=== PATIENT | male | born 1955 | race Caucasian/White ===

== ENCOUNTER 2020-05-30 05:58 | Day surgery (SDC) | payer BC ==
--- NOTE | 2020-05-26 09:15 | RAD REPORT ---
EXAM DESCRIPTION: RAD - Chest Pa And Lat (2 Views) - 05/26/2020 9:10 am CLINICAL HISTORY: pre op Chest pain. COMPARISON: Abdomen Acute Series dated 04/01/2017; Abdomen 1 View (KUB) dated 03/30/2017; CHEST PA AND LAT 2 VIEW dated 12/15/2009 FINDINGS: The lungs are clear. Chronic elevation left hemidiaphragm, unchanged. The heart is normal in size. No displaced fractures. IMPRESSION: No acute or concerning finding suspected.
[2020-05-26 09:34] LABS: Basophils % 0.7 % (0-1.3); Hematocrit 41.8 % (39.6-49.0); Lymphocytes % 32.3 % (15.3-44.8); MPV 7.1 fL (7.6-11.3); RBC Red Blood Cell Count 4.58 M/uL (4.33-5.43)
[2020-05-26 09:41] LABS: Protime INR 1.05
[2020-05-26 09:51] LABS: Potassium 4.3 mmol/L (3.5-5.1)
[2020-05-26 10:14] LABS: Urine Appearance CLEAR; Urine Bilirubin NEGATIVE (NEG); Urine Blood NEGATIVE (NEG); Urine Color YELLOW; Urine Glucose NEGATIVE (NEG); Urine Protein NEGATIVE (NEG); Urine Specific Gravity >=1.030 (1.005-1.030); Urine Urobilinogen 0.2 mg/dL (0.2-1.0)
[2020-05-26 11:41] LABS: Urine Microscopic Reflex NO UMIC
--- OUTSIDE RECORDS SUMMARY | 2020-05-30 06:00 | XMS REPORT | Summary of Care ---
:1955 Author Organization [facility] Address [address] [place] [address]- phone Encounter HQ Encntr_alivimal(FIN) [id number] Date(s): 04/30/20 - 04/30/20 [facility] [address], [place] [address]- [phone] Discharge Disposition: Home or Self Care Attending Physician: Tru Collins MD Referring Physician: Jonathan Alonzo MD Vital Signs No data available for this section Problem List Condition Effective Dates Status Health Status Informant CTS (carpal tunnel Active syndrome)(Confirmed) Allergies, Adverse Reactions, Alerts No data available for this section Medications No data available for this section Results No data available for this section Immunizations No data available for this section Procedures No data available for this section Social History No data available for this section Assessment and Plan No data available for this section
--- OUTSIDE RECORDS SUMMARY | 2020-05-30 06:00 | XMS REPORT | Continuity of Care Document ---
:1955 Author Organization [facility] Care Team Providers Name Role Phone [facility] Unavailable Un available Problems Problem Status Onset Classification Date Comments Sourc e Date Reported Carpal tunnel Active Problem 05/03/2020 Misch er syndrome Neuro (disorder) Medications No Data Provided for This Section Allergies, Adverse Reactions, Alerts No Known Medication Allergies Immunizations No Data Provided for This Section Results No Data Provided for This Section Pathology Reports No Data Provided for This Section Diagnostic Reports No Data Provided for This Section Consultation Notes No Data Provided for This Section Discharge Summaries No Data Provided for This Section History and Physicals No Data Provided for This Section Vital Signs No Data Provided for This Section Encounters Location Location Encounter Encounter Reason Attending ADM CA Stat Source Details Type Number For Provider Date Date Visit Outpatient [id number] Tru 04/30 Active [facility] [place] [facility] Out[facility] [id number] Jonathan 04/30 05/01 [facility] /2019 [facility] [place] Procedures No Data Provided for This Section Assessment and Plan No Data Provided for This Section Plan of Care No Data Provided for This Section Social History Social History Date Source No data available for this 05/01/2020 [facility] section Family History No Data Provided for This Section Advance Directives No Data Provided for This Section Functional Status No Data Provided for This Section
[2020-05-30] MEDS ORDERED: Ringers Lactate 1,000 ML IV ONE (06:17)
[2020-05-30] MEDS ORDERED: CEFAZOLIN/SWI 1gm 1 GM/10 ML SYR ONE (06:17)
[2020-05-30] MEDS ORDERED: BUPIVACAINE 0.25% PF 30 ML VIAL ONE (07:22)
[2020-05-30] MEDS ORDERED: MIDAZOLAM HCL 2 MG/2 ML INJ ONE (07:30)
[2020-05-30] MEDS ORDERED: propofoL 200 MG/20 ML VIAL IV ONE ×2 (07:31→07:37)
[2020-05-30] MEDS ORDERED: ONDANSETRON 4 MG/2 ML VIAL ONE (07:31)
[2020-05-30] MEDS ORDERED: LIDOCAINE 2% MPF 5 ML VIAL ONE (07:31)
[2020-05-30] MEDS ORDERED: NS 0.9% VIAL 30 ML ONE ×2 (07:31→07:32)
[2020-05-30] MEDS ORDERED: FENTANYL CITR 100 MCG/2 ML ONE (07:32)
[2020-05-30] MEDS ORDERED: KETOROLAC 30 MG/ML INJ ONE (08:32)
--- NOTE | 2020-05-30 08:55 | P.BOP ---
Preoperative diagnosis: right carpal tunnel syndrome Postoperative diagnosis: same Primary procedure: right open carpal tunnel release Sr. Director Product Management: NONE,NONE Estimated blood loss: 3 cc Specimen: none Findings: see dictation Anesthesia: General Complications: None Implants: none Fluids & blood products: per anesthesia record; TT: 33 mins @ 300 mmHg Transferred to: Recovery Room Condition: Good
[2020-05-30] MEDS ORDERED: CODEINE 30MG/APAP 300MG TAB ONE (09:36)
[2020-05-30 13:26] VITALS: BP 137/81; TEMP 97.4; O2SAT 96
--- NOTE | 2020-06-04 11:30 | OP ---
Date of Procedure: 05/30/2020 Surgeon: Jonathan Alonzo MD Preoperative Diagnosis: Right carpal tunnel syndrome. Postoperative Diagnosis: Right carpal tunnel syndrome. Procedure Performed: Right open carpal tunnel release. Anesthesia: Valentine block. Fluids: Per Anesthesia record. Estimated Blood Loss: 50 cc. Tourniquet Time: 33 minutes at 300 mmHg. Indication For Procedure: Dirk is a 65-year-old male, who presented to my clinic with signs, sympt oms, and EMG findings consistent with carpal tunnel syndrome. The patient failed conservative measur es and continued difficulties with activities of daily living. Discussed with the patient at length risks and benefits associated with operative and nonoperative treatment. He expressed understanding and elected to proceed with operative treatment. Description Of Procedure: After informed consent was obtained, the patient was identified in the pre operative holding area. The right upper extremity was marked. The patient was then brought back to the operating room, transferred to the operating table in supine fashion. Placement of the above ane sthesia performed by the anesthesia team. The right upper extremity was then prepped and draped in u sual sterile fashion. A time-out was initiated. Correct patient and procedure were confirmed and id entified. The patient did receive his preoperative prophylactic antibiotics. Approximately, a 2 cm incision was made just ulnar to the thenar crease in line with the radial aspect of the fourth digit with a flexed hand. Dissection was then taken down to the palmar fascia, which was identified. A Fr eer elevator was placed just deep to the palmar fascia and transverse carpal ligament to protect the median nerve at all times. A 15-blade was then used to release the transverse carpal ligament and th e palmar fascia with a [place] elevator between the fascia and the median nerve to protect it at all ti mes. After full release of the transverse carpal ligament was performed, a smooth tip Metzenbaum sci ssors was then used to release any remaining fascial bands with Metzenbaum tips were ran superficiall y at all times again to avoid any contact with median nerves after complete release of the transverse carpal ligament and any remaining fascial bands was performed. The wound was then irrigated thoroug hly with normal saline. Skin was approximated using a 5-0 Prolene. Sterile dressings were applied. Tourniquet was let down. The patient was sent to the PACU in stable condition. Postoperative Plan: Mr. Morris will follow up my clinic in 1 week for suture removal. He will be no nweightbearing on his right upper extremity. CV/MODL Voice ID: [id number] Report ID: [id number]
== END 2020-05-30 10:10 | disposition home or self-care (01) ==
LOC: OR 05:58
PROVIDERS: ATTEND Orthopaedic Surgery Sports Medicine
PROC: 01N50ZZ Release Median Nerve, Open Approach (ICD-10-PCS; principal; 2020-05-30 07:30)
DX: G56.01 Carpal tunnel syndrome, right upper limb (principal); M10.9 Gout, unspecified; G47.33 Obstructive sleep apnea (adult) (pediatric); Z11.59 Encounter for screening for other viral diseases; Z83.3 Family history of diabetes mellitus
CPT/HCPCS: 93005; 85025; 80048; 36415; 85610; 85730; 81003; 71046; 64721; U0002; J2704 ×2; J2250; J3010; J0690; J7120; J2405

== ENCOUNTER 2020-07-30 06:23 | Day surgery (SDC) | payer BC ==
[2020-07-24 10:27] LABS: Urine Appearance CLEAR; Urine Bilirubin NEGATIVE (NEG); Urine Blood NEGATIVE (NEG); Urine Color YELLOW; Urine Glucose NEGATIVE (NEG); Urine Protein TRACE (NEG); Urine Specific Gravity 1.025 (1.005-1.030); Urine Urobilinogen 0.2 mg/dL (0.2-1.0)
[2020-07-24 10:29] LABS: Basophils % 0.8 % (0-1.3); Hematocrit 42.8 % (39.6-49.0); Lymphocytes % 32.2 % (15.3-44.8); MPV 7.5 fL (7.6-11.3); RBC Red Blood Cell Count 4.72 M/uL (4.33-5.43)
[2020-07-24 10:40] LABS: Protime INR 1.02
[2020-07-24 10:50] LABS: Urine Microscopic Reflex ORDER UMIC
[2020-07-24 11:15] LABS: Urine Bacteria <20 /HPF (NONE SEEN); Urine RBC <5 /HPF (NONE SEEN)
[2020-07-24 11:16] LABS: Urine Culture Reflex Order NOT NEEDED; Urine Mucus 1+ /HPF (NONE SEEN)
[2020-07-24 14:08] LABS: Potassium 4.5 mmol/L (3.5-5.1)
--- OUTSIDE RECORDS SUMMARY | 2020-07-30 06:27 | XMS REPORT | Continuity of Care Document ---
:1955 Author Organization [facility] Care Team Providers Name Role Phone [facility] Unavailable Un available Problems Problem Status Onset [...] Location Location Encounter Encounter Reason Attending ADM [place] Stat Source Details Type Number For Provider Date Date Visit Outpatient [id number] Tru 04/30 Active [facility] [place] [facility] Outpatient [id number] Jonathan 04/30 05/01 [facility] /2019 [facility] [place] Procedures No Data Provided for This Section [...]
[2020-07-30] MEDS ORDERED: CEFAZOLIN/SWI 1gm 1 GM/10 ML SYR ONE (06:51)
[2020-07-30] MEDS ORDERED: Ringers Lactate 1,000 ML IV ONE (06:51)
[2020-07-30 06:59] VITALS: O2SAT 95
[2020-07-30] MEDS ORDERED: MIDAZOLAM HCL 2 MG/2 ML INJ ONE (06:59)
[2020-07-30] MEDS ORDERED: FENTANYL CITR 100 MCG/2 ML ONE (06:59)
[2020-07-30] MEDS ORDERED: propofoL 200 MG/20 ML VIAL IV ONE (06:59)
[2020-07-30] MEDS ORDERED: ONDANSETRON 4 MG/2 ML VIAL ONE (07:00)
[2020-07-30] MEDS ORDERED: KETOROLAC 30 MG/ML INJ ONE (07:00)
[2020-07-30] MEDS ORDERED: LIDOCAINE 2% MPF 5 ML VIAL ONE ×2 (07:00→07:05)
[2020-07-30] MEDS ORDERED: BUPIVACAINE 0.25% PF 30 ML VIAL ONE (07:40)
--- NOTE | 2020-07-30 08:24 | P.BOP ---
Preoperative diagnosis: left carpal tunnel syndrome Postoperative diagnosis: same Primary procedure: left open carpal tunnel release Parts Salesman: NONE,NONE Estimated blood loss: <5 cc Specimen: none Findings: see dictation Anesthesia: General Complications: None Implants: none Fluids & blood products: per anesthesia record Transferred to: Recovery Room Condition: Good
[2020-07-30 08:56] VITALS: BP 91/58; TEMP 97.1
--- NOTE | 2020-08-04 23:49 | OP ---
Date of Procedure: 07/30/2020 Surgeon: Jonathan Alonzo MD Preoperative Diagnosis: Left carpal tunnel syndrome. Postoperative Diagnosis: Left carpal tunnel syndrome. Procedure Performed: Left open carpal tunnel release. Anesthesia: [place] block. Complications: None. Specimens: None. Implants: None. Blood Loss: Less than 5 cc. Fluids: Per Anesthesia record. Indication For Procedure: Dirk is a 65-year-old male, who presented to my clinic with signs, sympt oms, EMG findings consistent with left carpal tunnel syndrome. The patient however had already under gone right carpal tunnel release earlier this year and had significant relief of the symptoms. He co ntinued to have left hand symptoms even after conservative treatment measures. Discussed with the junior hoff at length risks and benefits associated with operative and nonoperative treatment. He expresse d understanding and elected to proceed with operative treatment. Description Of Procedure: After informed consent was obtained, the patient was identified in the pre operative holding area. The left upper extremity was then prepped and draped in usual sterile fashio n. A time-out was initiated. The correct patient and procedure were confirmed and identified. The patient had received his preoperative prophylactic antibiotics. The patient had already undergone a kamala block performed by Anesthesia. Approximately a 1 inch longitudinal incision was made just ulnar to the thenar crease. Dissection was then taken down the palmar fascia, which was identified. A Fr eer elevator was placed just deep to the palmar fascia protecting the median nerve at all times. A 1 5 blade was then used to release the palmar fascia and transverse carpal ligament again with a [place] elevator protecting the median nerve at all times. After complete release of the transverse carpal l igament using a 15 blade, the remaining fascial bands were released using a blunt-tipped Metzenbaum w ith the tips aimed superficially protecting the median nerve at all times. The wound was then irriga migue thoroughly with normal saline. The skin was approximated using a 5-0 Prolene. Sterile dressings were applied. Tourniquet was let down. The patient was awakened and transferred to PACU in stable condition. Postoperative Plan: He will be nonweightbearing on his left upper extremity. He may begin working o n range of motion exercises. He will follow up in 1 week for wound check and suture removal. CV/MODL Voice ID: [id number] Report ID: [id number]
== END 2020-07-30 09:49 | disposition home or self-care (01) ==
LOC: OR 06:23
PROVIDERS: ATTEND Orthopaedic Surgery Sports Medicine
PROC: 01N50ZZ Release Median Nerve, Open Approach (ICD-10-PCS; 2020-07-30)
PROC: 01N50ZZ Release Median Nerve, Open Approach (ICD-10-PCS; principal; 2020-07-30 07:30)
DX: G56.02 Carpal tunnel syndrome, left upper limb (principal); M10.9 Gout, unspecified; Z20.828 Contact with and (suspected) exposure to other viral communicable diseases
CPT/HCPCS: 64721; 85025; 80048; 36415; 85610; 85730; U0002; J2704; J2250; J3010; J0690; J7120; J2405; 81003; 81015

== ENCOUNTER 2021-01-19 07:35 | Day surgery (SDC) | payer BC ==
--- NOTE | 2021-01-15 15:08 | RAD REPORT ---
EXAM DESCRIPTION: Odilon Melchor And Lat (2 Views)01/15/2021 2:47 pm CLINICAL HISTORY: Preop cardiac catheterization COMPARISON: May 2020 FINDINGS: Elevation left hemidiaphragm is unchanged Lungs appear clear of acute infiltrate. Heart is normal size
[2021-01-15 15:26] LABS: Protime INR 1.04
[2021-01-15 15:30] LABS: Absolute Lymphocytes (CBC) 2.2 K/uL (0.7-4.9); Basophils % 0.8 % (0-1.3); Lymphocytes % 33.7 % (15.3-44.8); MPV 7.9 fL (7.6-11.3); RBC Red Blood Cell Count 4.82 M/uL (4.33-5.43)
[2021-01-15 15:43] LABS: Potassium 3.9 mmol/L (3.5-5.1)
[2021-01-19] MEDS ORDERED: NA CHLORIDE 0.9% 500 ML ONE (08:04)
[2021-01-19] MEDS ORDERED: HEPA 1000U/500MLS 1,000 UNIT/500 ML BAG IV ONE (08:35)
[2021-01-19] MEDS ORDERED: MIDAZOLAM HCL 2 MG/2 ML INJ ONE ×2 (08:35→08:47)
[2021-01-19] MEDS ORDERED: ATROPINE SULF 1 MG/10 ML SYR IV ONE (08:36)
[2021-01-19] MEDS ORDERED: FENTANYL CITR 100 MCG/2 ML ONE (08:36)
[2021-01-19] MEDS ORDERED: NITROGLYCERIN/D5W 25 MG/250 ML BTL IV ONE (08:36)
[2021-01-19] MEDS ORDERED: NA CHLORIDE 0.9% 50 ML ONE (08:36)
[2021-01-19] MEDS ORDERED: NITROGLYCERIN 100 MCG/ML SYR (for cath lab use only) IV ONE (08:36)
[2021-01-19] MEDS ORDERED: LIDOCAINE 1% 20 ML MDV ONE (09:51)
--- NOTE | 2021-01-19 09:55 | OP ---
Surgeon: Salvador Maldonado MD Toll Booth Operator: Ann Vargas. Procedure: Admitted to my service as an outpatient today on 01/19/2021 for a heart catheterization. Indication: Abnormal stress test and chest pain. History Of Present Illness: Mr. Morris is a patient of Dr. Dukes, had an abnormal stress test in [facility] office. I contacted Dr. Dukes to have the patient to come see me in the office as an outpatient, scheduled a left heart catheterization on him because of unstable angina symptoms and a positive str ess test. Procedure In Detail: He was brought to the crime lab analyst today on 01/19/2021, prepped and draped in the r outine sterile fashion. Given Versed and fentanyl for sedation. A 6-English sheath was introduced in the right common femoral artery successfully using the Seldinger technique and 10 cc of Xylocaine. Angiography there was normal. StarClose was used to close the case. Tresa catheter left and right were used to do the diagnostic catheterization. His RCA was ectatic, larger in the proximal area wi th 50% mid stenosis with nondominant. The left main was cannulated with JL4 and that showed a 30% os tial left main, a 78% to 80% proximal circumflex, which was very large, very dominant and the stenosi s as before a very large obtuse marginal. He had a 70% long ostial LAD all the way up to the first d iagonal. There was a 99% stenosis of the LAD with RUPA 2 flow. I attempted angioplasty. I cannulat ed the left main with an XB LAD 3.5 with side holes successfully. I was able to cross the lesion wit h the wire successfully; however, I could not pass a balloon to go through the ostium of the LAD. We tried a 2.0 balloon and a 2.5 balloon Emerge noncompliant and the balloon would get stuck in the lef t main, just right at the ostium of the LAD. I felt it would be much safer to send Mr. Morris for co ronary artery bypass surgery. The patient tolerated the procedure well. There were no complications . Blood Loss: 5 mL. Anesthesia: Total conscious sedation was 60 minutes. Postoperative Diagnoses: Severe coronary artery disease, failed angioplasty of the LAD secondary to failure of crossing a balloon, circumflex stenosis, left main stenosis, RCA stenosis. Case was discussed with the patient. I will transfer the patient to [facility] for bypass surgery today . SANTA Voice ID: [id number] Report ID: [id number]
[2021-01-19 10:22] VITALS: TEMP 96.8
[2021-01-19 17:34] VITALS: BP 120/60; O2SAT 97
== END 2021-01-19 17:35 | disposition home or self-care (01) ==
LOC: CCL 07:35
PROC: 02703ZZ Dilation of Coronary Artery, One Artery, Percutaneous Approach (ICD-10-PCS; principal; 2021-01-19)
DX: I25.10 Atherosclerotic heart disease of native coronary artery without angina pectoris (principal); M10.9 Gout, unspecified; Z20.822 Contact with and (suspected) exposure to COVID-19; Z82.49 Family history of ischemic heart disease and other diseases of the circulatory system
CPT/HCPCS: 85025; 80048; 36415; 85610; 85347 ×2; 85730; 71046; 93454; 92920; U0002; C1893; J2250 ×2; J3010; J0583; J7040; J1644